=== PATIENT | male | born 1950 | race African-American/Black ===

== ENCOUNTER 2019-07-11 11:09 | Inpatient (IN) | payer MEDICARE, OTHER ==
[~2019-07-11] VITALS: Ht 172.7 cm; Wt 73.0 kg
[~2019-07-11 11:09] MED LIST: ALBUAER3 IN; ASPI-231 PO; ATOR40TA52 PO; DABI150C5 PO; DIG0125T PO; FURO1TAB33 PO; HYD25T PO; Isosorbide Mononitrate PO; LOS50T PO; METO1TAB9 PO; MEX150C PO; OMEP20TA PO; POTA1TAB61 PO; TAMS0.4C36 PO
[2019-07-11 12:26] LABS: Basophils # (auto) 0.1 uL; Basophils % (auto) 1.6 % (0.0-2.0); Eosinophils # (auto) 0.2 uL; Eosinophils % (auto) 3.2 % (0.0-7.0); Hemoglobin 13.3 g/dL (13.5-17.5); Lymphocytes # (auto) 1.8 uL; Lymphocytes % (auto) 23.5 % (10.0-50.0); Mean Corpuscular Hemoglobin 29.2 pg (28.0-32.0); Mean Corpuscular Hgb Conc. 32.5 g/dL (32.0-36.0); Mean Corpuscular Volume 89.8 fL (80.0-100.0); Monocytes # (auto) 0.6 uL; Monocytes % (auto) 8.1 % (0.0-12.0); Neutrophils # (auto) 4.7 uL; Neutrophils % (auto) 63.6 % (37.0-80.0); Platelet Count (auto) 267 10^3/uL (140-450); Red Blood Cells 4.56 10^6/uL (4.5-5.90); Red Cell Distribution Width 16.2 % (11.8-14.3); White Blood Cell 7.5 10^3/uL (4.4-10.8)
[2019-07-11 12:48] LABS: Chloride 108 mmol/L (98-107); Potassium 3.5 mmol/L (3.5-5.1); Sodium 140 mmol/L (136-145)
[2019-07-11 12:57] LABS: Alanine Aminotransferase 16 U/L (16-61); Albumin 3.6 g/dL (3.4-5.0); Alkaline Phosphatase 72 U/L (45-117); Anion Gap 9 (5-15); Aspartate Aminotransferase 15 U/L (15-37); BUN/Creatinine Ratio 14.4; Bilirubin, Total 0.7 mg/dL (0.2-1.0); Blood Urea Nitrogen 19 mg/dL (7-18); Carbon Dioxide 23 mmol/L (21-32); GFR African American 69 mL/min; GFR Non-African American 57 mL/min; Glucose 86 mg/dL (74-106); Total Protein 7.8 g/dL (6.4-8.2)
[2019-07-11] MEDS ORDERED: SENN1TAB14 PO (13:26)
[2019-07-11] MEDS ORDERED: dilTIAZem 25 MG/5 ML VIAL IV ONE (13:45)
[2019-07-11] MEDS ORDERED: ASPirin 81 mg TAB PO ONE (14:15)
[2019-07-11 14:32] LABS: INR 1.18 (0.9-1.15); Partial Thromboplastin Time 60.6 sec (23.64-32.05)
[2019-07-11 14:58] LABS: Urine Bacteria NONE SEEN /hpf (None Seen); Urine Blood 1+ /uL (Negative); Urine Hyaline Cast FEW /lpf (0 - 2); Urine Specific Gravity 1.031 (1.001-1.035); Urine WBC 59 /hpf (0 - 3)
[2019-07-11] MEDS ORDERED: METOPROLOL TARTRATE 50 MG TAB PO ONE (16:00)
[2019-07-11] MEDS ORDERED: MORPHINE SULF INJ 2 MG/ML SYRINGE 1ML IV PRN (16:00)
[2019-07-11] MEDS ORDERED: PROMETHAZINE HCL 25 MG/ML 1ML IV PRN (16:00)
[2019-07-11] MEDS ORDERED: ALBUTEROL SULF 2.5 MG/0.5ML(0.5%) NEB SOLN NEB PRN (16:00)
[2019-07-11] MEDS ORDERED: ACETAMINOPHEN 500 MG TAB PO PRN (16:00)
[2019-07-11] MEDS ORDERED: SENNA 8.6 MG TAB PO PRN (16:00)
[2019-07-11] MEDS ORDERED: TEMAZEPAM 15 MG CAP PO PRN (16:00)
[2019-07-11] MEDS ORDERED: DEXTROSE (50%) 50ML SYRG IV PRN (16:00)
[2019-07-11] MEDS ORDERED: MEXILETINE HYDROCHLORIDE 150 MG CAP PO ONE (16:00)
[2019-07-11] MEDS ORDERED: NITROGLYCERIN 0.4 MG SL TAB SL PRN (16:00)
[2019-07-11 16:28] LABS: Alcohol, Urine < 3.0 mg/dL (0-5); Amphetamine Screen, Urine NEGATIVE (NEGATIVE); Barbiturate Scree,Urine NEGATIVE (NEGATIVE); Benzodiazephine Screen, Urine NEGATIVE (NEGATIVE); Cannabinoid Screen, Urine POSITIVE (NEGATIVE); Cocaine Screen, Urine NEGATIVE (NEGATIVE); Opiate Scree,Urine NEGATIVE (NEGATIVE); Phencyclidine Screen, Urine NEGATIVE (NEGATIVE)
[2019-07-11] MEDS: traMADol HCL 50 MG TAB PO PRN ×2 (16:30→23:19)
[2019-07-11] MEDS: ACCU-CHEK COMFORT CURVE STRIP VI SCH (18:06)
[2019-07-11] MEDS: METOPROLOL SUCCINATE XL 50 MG TAB PO SCH (18:17)
[2019-07-11] MEDS: FUROSEMIDE 20 MG TAB PO SCH (18:18)
[2019-07-11] MEDS: IPRATROPIUM BROM 0.5 MG/2.5ML INH SOL NEB SCH (18:56)
[2019-07-11] MEDS: ALBUTEROL SULF 2.5 MG/0.5ML(0.5%) NEB SOLN NEB SCH (18:56)
[2019-07-11] MEDS ORDERED: cefTRIAXone 1GM/50ML D5W 50 ML IV ONE (20:15)
[2019-07-11 22:00] VITALS: BP 133/72
[2019-07-11] MEDS ORDERED: MEXILETINE HYDROCHLORIDE 150 MG CAP PO SCH (22:00)
[2019-07-11] MEDS ORDERED: hydrALAZINE HCL 25 MG TAB PO SCH (22:00)
[2019-07-11 23:04] VITALS: BP 147/99
[2019-07-12] VITALS (7 sets, daily range): BP systolic 102–137; BP diastolic 71–106
[2019-07-12] MEDS: ALBUTEROL SULF 2.5 MG/0.5ML(0.5%) NEB SOLN NEB SCH ×4 (00:48→18:00)
[2019-07-12] MEDS: IPRATROPIUM BROM 0.5 MG/2.5ML INH SOL NEB SCH ×4 (00:48→17:59)
[2019-07-12] MEDS: ACCU-CHEK COMFORT CURVE STRIP VI SCH ×4 (01:27→18:17)
[2019-07-12] MEDS: POTASSIUM CHL 10 Meq TABLET PO SCH ×2 (01:28→09:32)
[2019-07-12 05:47] LABS: Albumin 3.3 g/dL (3.4-5.0); Calcium 8.4 mg/dL (8.5-10.1); Potassium 3.7 mmol/L (3.5-5.1)
[2019-07-12 05:51] LABS: BUN/Creatinine Ratio 15.2; Bilirubin, Total 0.8 mg/dL (0.2-1.0); Total Protein 7.2 g/dL (6.4-8.2)
[2019-07-12] MEDS: FUROSEMIDE 20 MG TAB PO SCH (06:47)
[2019-07-12] MEDS: traMADol HCL 50 MG TAB PO PRN ×2 (06:48→12:54)
[2019-07-12] MEDS ORDERED: PANTOPRAZOLE 40 MG TAB PO SCH (08:00)
[2019-07-12] MEDS ORDERED: cefTRIAXone 1GM/50ML D5W 50 ML IV SCH (09:00)
[2019-07-12] MEDS: METOPROLOL SUCCINATE XL 50 MG TAB PO SCH ×2 (09:31→18:00)
[2019-07-12] MEDS ORDERED: DABIGATRAN 75 MG CAP PO SCH ×2 (10:00→22:00)
[2019-07-12] MEDS ORDERED: ASPirin-EC 81 mg tab PO SCH (10:00)
[2019-07-12] MEDS ORDERED: TAMSULOSIN HYDROCHLORIDE 0.4 MG CAP PO SCH (10:00)
[2019-07-12] MEDS ORDERED: ISOSORBIDE MONONITRATE 60 MG PO SCH (10:00)
[2019-07-12] MEDS ORDERED: LOSARTAN POTASSIUM 50 MG TAB PO SCH (10:00)
[2019-07-12] MEDS ORDERED: CEPH-37 PO (15:13)
[2019-07-13] MEDS ORDERED: FUROSEMIDE 20 MG TAB PO SCH (10:00)
[2019-07-13] MEDS ORDERED: POTASSIUM CHL 10 Meq TABLET PO SCH (10:00)
== END 2019-07-12 19:23 | disposition home or self-care (01) | DRG 315 ==
LOC: EDBD 11:09 → ER 11:14 → TELE 11:15 → TELE-WESTW 19:32
PROVIDERS: ADMIT Internal Medicine; ATTEND Internal Medicine
DX: T82.119A Breakdown (mechanical) of unspecified cardiac electronic device, initial encounter (principal); I13.0 Hypertensive heart and chronic kidney disease with heart failure and stage 1 through stage 4 chronic kidney disease, or unspecified chronic kidney disease; N39.0 Urinary tract infection, site not specified; D68.69 Other thrombophilia; R07.89 Other chest pain; I48.91 Unspecified atrial fibrillation; I49.3 Ventricular premature depolarization; F41.9 Anxiety disorder, unspecified; J44.9 Chronic obstructive pulmonary disease, unspecified; N40.0 Benign prostatic hyperplasia without lower urinary tract symptoms; N18.3 Chronic kidney disease, stage 3 (moderate); Y71.2 Prosthetic and other implants, materials and accessory cardiovascular devices associated with adverse incidents; E11.22 Type 2 diabetes mellitus with diabetic chronic kidney disease; I50.9 Heart failure, unspecified; F17.210 Nicotine dependence, cigarettes, uncomplicated; Z95.810 Presence of automatic (implantable) cardiac defibrillator; Z82.49 Family history of ischemic heart disease and other diseases of the circulatory system
CPT/HCPCS: 36415; 71045; 80053; 80307; 81001; 82550; 82962; 83036; 83735; 83880; 84443; 84484; 85025; 85610; 85730; 93005; 94640; 96374; 96375; G0378; J0696

== ENCOUNTER 2019-11-17 18:55 | Inpatient (IN) | payer MEDICARE, OTHER ==
[~2019-11-17] VITALS: Ht 172.7 cm; Wt 74.6 kg
[~2019-11-17 18:55] MED LIST changes: -ATOR40TA52 PO; +CEPH-37 PO; -DIG0125T PO; +SENN1TAB14 PO
[2019-11-17 19:49] LABS: Basophils # (auto) 0.1 10 ^3/uL (0-0.2); Basophils % (auto) 2.2 % (0.0-2.0); Eosinophils # (auto) 0.2 10 ^3/uL (0-0.8); Hematocrit 33.8 % (41.0-53.0); Hemoglobin 10.8 g/dL (13.5-17.5); Lymphocytes % (auto) 15.2 % (10.0-50.0); Mean Corpuscular Hemoglobin 28.1 pg (28.0-32.0); Mean Corpuscular Hgb Conc. 32.1 g/dL (32.0-36.0); Mean Corpuscular Volume 87.4 fL (80.0-100.0); Monocytes # (auto) 0.7 10 ^3/uL (0-1.3); Monocytes % (auto) 11.3 % (0.0-12.0); Neutrophils # (auto) 4.2 10 ^3/uL (1.6-8.6); Neutrophils % (auto) 67.3 % (37.0-80.0); Nucleated Red Blood Cells % 0.1 %; Platelet Count (auto) 296 10^3/uL (140-450); Red Blood Cells 3.86 10^6/uL (4.5-5.90); Red Cell Distribution Width 18.8 % (11.8-14.3); White Blood Cell 6.3 10^3/uL (4.4-10.8)
[2019-11-17 20:07] LABS: Alanine Aminotransferase 21 U/L (16-61); Anion Gap 8 (5-15); Aspartate Aminotransferase 20 U/L (15-37); BUN/Creatinine Ratio 9.7; Blood Urea Nitrogen 11 mg/dL (7-18); Calcium 8.4 mg/dL (8.5-10.1); Carbon Dioxide 25 mmol/L (21-32); Chloride 102 mmol/L (98-107); GFR African American 83 mL/min; GFR Non-African American 68 mL/min; Glucose 91 mg/dL (74-106); Potassium 3.1 mmol/L (3.5-5.1); Sodium 135 mmol/L (136-145)
[2019-11-17 20:11] LABS: Alkaline Phosphatase 68 U/L (45-117); Bilirubin, Total 1.7 mg/dL (0.2-1.0)
[2019-11-17] MEDS ORDERED: MORPHINE SULFATE 4 MG/ML SYR/VIAL IV ONE (22:15)
[2019-11-17] MEDS ORDERED: NITROGLYCERIN 0.2MG/HR TOPICAL PATCH TD ONE (22:15)
[2019-11-17] MEDS ORDERED: POTASSIUM EFFERVESENT TAB 25 MEQ PO ONE (22:15)
[2019-11-17] MEDS ORDERED: ONDANSETRON HCL 4 MG/2 ML VIAL IV ONE (22:15)
[2019-11-17] MEDS ORDERED: ENALAPRILAT 1.25 MG/ML-1ML VIAL IV ONE (22:15)
[2019-11-17 23:05] LABS: INR 1.69 (0.9-1.15)
[2019-11-17 23:07] LABS: Partial Thromboplastin Time 105.5 sec (23.64-32.05)
[2019-11-17] MEDS ORDERED: METOPROLOL TARTRATE 1MG/1ML-5ML VIAL IV ONE (23:45)
[2019-11-18] VITALS (8 sets, daily range): BP systolic 90–115; BP diastolic 54–77
[2019-11-18 01:05] LABS: Urine Bacteria FEW /hpf (None Seen); Urine Blood 1+ /uL (Negative); Urine Hyaline Cast FEW /lpf (0 - 2); Urine Specific Gravity 1.012 (1.001-1.035); Urine WBC 49 /hpf (0 - 3)
[2019-11-18 01:54] LABS: Amphetamine Screen, Urine NEGATIVE (NEGATIVE); Barbiturate Scree,Urine NEGATIVE (NEGATIVE); Benzodiazephine Screen, Urine NEGATIVE (NEGATIVE); Cannabinoid Screen, Urine POSITIVE (NEGATIVE); Cocaine Screen, Urine NEGATIVE (NEGATIVE)
[2019-11-18 02:01] LABS: Opiate Scree,Urine NEGATIVE (NEGATIVE); Phencyclidine Screen, Urine NEGATIVE (NEGATIVE)
[2019-11-18] MEDS ORDERED: METOPROLOL TARTRATE 1MG/1ML-5ML VIAL IV ONE ×3 (02:30→13:01)
[2019-11-18] MEDS ORDERED: MORPHINE SULF INJ 2 MG/ML SYRINGE 1ML IV PRN (05:30)
[2019-11-18] MEDS ORDERED: TEMAZEPAM 15 MG CAP PO PRN (05:30)
[2019-11-18] MEDS ORDERED: ACETAMINOPHEN 325 MG TAB PO PRN (05:30)
[2019-11-18] MEDS ORDERED: NITROGLYCERIN 0.4 MG SL TAB SL PRN (05:30)
[2019-11-18] MEDS: FUROSEMIDE 40 MG TAB PO SCH ×2 (06:14→18:00)
[2019-11-18] MEDS ORDERED: POTASSIUM CHL 20 Meq TABLET PO ONE ×2 (07:45→18:15)
[2019-11-18] MEDS ORDERED: METOPROLOL TARTRATE 50 MG TAB PO SCH (10:00)
[2019-11-18] MEDS: hydrALAZINE HCL 25 MG TAB PO SCH ×2 (10:00→21:32)
[2019-11-18] MEDS: FAMOTIDINE 20 MG TAB PO SCH ×2 (10:25→21:32)
[2019-11-18] MEDS: ASPirin 81 mg TAB PO SCH (10:26)
--- NOTE | 2019-11-18 13:00 | NUR ---
SPOKE WITH DEREJE LOCKETT REGARDING HEART RATE IN 120-130. RECEIVED ORDER FOR 5 MG IV LOPREASOR TO BE GIVEN ONCE AND TO CALL HIM IN A HOUR. Addendum: 11/18/19 at 1954 by KIESHA BENITES RN DR. LEVY SALVADOR
--- NOTE | 2019-11-18 13:32 | NUR ---
DR. Chris SHELDON AT BEDSIDE.
--- NOTE | 2019-11-18 14:31 | NUR ---
Dr. Cristopher Lopez updated with one hour post lopressor administration, aware of heart rate 101-111 at this time, no new orders will come to see patient after office hours. Will continue to monitor.
--- NOTE | 2019-11-18 15:21 | NUR ---
Dr. Lopez updated patient forgot his inhaler at home, patient requesting inhaler or subsitute prn. Awaiting response.
--- NOTE | 2019-11-18 15:45 | NUR ---
DR. MODESTO LOCKETT AT BEDSIDE
--- NOTE | 2019-11-18 16:11 | NUR ---
New orders received from Dr. Lopez. RT aware and will come to the bedside. Will continue to monitor.
[2019-11-18] MEDS ORDERED: LEVALBUTEROL HCL 1.25 MG/3 ML NEB NEB PRN (16:15)
[2019-11-18] MEDS ORDERED: DIGOXIN 0.25 MG TAB PO ONE (18:00)
[2019-11-18] MEDS: METOPROLOL TARTRATE 50 MG TAB PO SCH ×2 (18:37→21:32)
--- NOTE | 2019-11-18 19:36 | NUR ---
REPORT GIVEN IN FULL DETAIL TO DEB DICKERSON. RN WAS MADE AWARE THAT FIRST DOSE OF DIGOXIN 0.5 WAS GIVEN AND PT IS TO RECEIVE ANOTHER 0.25 AT 2 AM AND 0.25 AT [address] LOCKETT WILL CHANGE DOSE. RN WAS MADE AWARE THE PT IS TO RECEIVE 40 MEQ OF POTASSIUM AND HAVE LAB RE-DRAWN THREE HOURS AFTER. RN MADE AWARE THE PER DR. LOCKETT PT POTASSIUM IS TO REMAIN AT A 4, IF LEVEL DROPS BELOW TO PLEASE CONTACT PHYSICIAN. DEB DICKERSON WAS GIVEN 40 MEQ OF POTASSIUM TO ADMINISTER TO PATIENT AND THE DOSE OF LASIX THAT WAS HELD DUE TO LOW BLOOD PRESSURE. NO FURTHER INCIDENT TO REPORT.
--- NOTE | 2019-11-18 19:45 | NUR ---
PT TRANSFERRED TO ROOM 220A IN STABLE CONDITION. PT ON TELE MONITOR AND 3L NC. FALL PRECAUTIONS IN PLACE, BED IN LOWEST POSITION BED BRAKE AND ALARM SET,PT CALL LIGHT WITH IN REACH. DEB DICKERSNO AT BEDSIDE.
--- NOTE | 2019-11-18 19:45 | NUR ---
Telemetry admit from O.R. WILLOZ J admitted to Telemetry unit after SBAR received. Patient oriented to Sophia muse RN, unit, room, bed, and unit policies regarding patient care and visiting hours. Patient now on continuous telemetry monitoring, tele box # and telemetry reading on arrival to unit is . Patient placed on bedside oxygen, weighed by bed scale and encouraged to call if they need something. All questions and concerns addressed, patient verbalized understanding. Note:E.R patient placed in O.R, not surgical patient per stretcher, placed in the bed comfortably, vital signs checked. Addendum: 11/19/19 at [address] RN Patient has tele no.[phone], running afib 96
--- NOTE | 2019-11-18 20:45 | NUR ---
Called/paged Sheryl Hauser. called re:patients blood pressure is 85/55,almost fainted, arousable to verbal stimuli . Waiting for call back. Continue care.
[2019-11-18] MEDS ORDERED: ALBUMIN 5% 250 ML IV ONE (21:15)
--- NOTE | 2019-11-18 21:15 | NUR ---
returned call Sheryl Hauser returned call, updated on patient status and reason for call, orders received of albumin 5% 250ml. x one. Continue care.
[2019-11-19 01:55] LABS: BUN/Creatinine Ratio 10.8; Calcium 8.7 mg/dL (8.5-10.1)
[2019-11-19 01:57] LABS: Bilirubin, Total 1.9 mg/dL (0.2-1.0); Total Protein 6.7 g/dL (6.4-8.2)
[2019-11-19 01:59] LABS: Potassium 5.8 mmol/L (3.5-5.1)
[2019-11-19] MEDS ORDERED: DIGOXIN 0.25 MG TAB PO ONE ×2 (02:00→10:00)
[2019-11-19 05:05] VITALS: BP 122/73
[2019-11-19] MEDS: FUROSEMIDE 40 MG TAB PO SCH (05:25)
[2019-11-19] MEDS: LEVOTHYROXINE SODIUM 25 MCG TAB PO SCH (06:30)
--- NOTE | 2019-11-19 06:38 | NUR ---
Called/paged Khalida Hauser called re:potassium result of 5.8 . Waiting for call back. Continue care.
--- NOTE | 2019-11-19 07:00 | NUR ---
Report given to Yajaira, ham R.n. to check for the order of Mikael.
[2019-11-19] MEDS ORDERED: SODIUM ZIRCONIUM CYCL 10 GM PAK PO ONE (07:30)
--- NOTE | 2019-11-19 07:35 | NUR ---
Opening shift note Assumed care of patient from NOC DEB Holloway. Patient is AOx4 no signs and symptoms of distress noted. Bed is in lowest locked position, call light within reach and side rails up x2. Updated patient on plan of care and patient verbalized understanding. Will continue to monitor q1hr and PRN.
[2019-11-19 07:54] LABS: Basophils # (auto) 0.1 10 ^3/uL (0-0.2); Basophils % (auto) 1.4 % (0.0-2.0); Eosinophils # (auto) 0 10 ^3/uL (0-0.8); Eosinophils % (auto) 0.7 % (0.0-7.0); Hematocrit 32.7 % (41.0-53.0); Hemoglobin 10.5 g/dL (13.5-17.5); Lymphocytes # (auto) 0.9 10 ^3/uL (0.4-5.4); Lymphocytes % (auto) 15.9 % (10.0-50.0); Mean Corpuscular Hemoglobin 28.2 pg (28.0-32.0); Mean Corpuscular Hgb Conc. 32.2 g/dL (32.0-36.0); Mean Corpuscular Volume 87.8 fL (80.0-100.0); Monocytes # (auto) 0.6 10 ^3/uL (0-1.3); Monocytes % (auto) 10.8 % (0.0-12.0); Neutrophils # (auto) 4.3 10 ^3/uL (1.6-8.6); Neutrophils % (auto) 71.2 % (37.0-80.0); Nucleated Red Blood Cells % 0.1 %; Platelet Count (auto) 272 10^3/uL (140-450); Red Blood Cells 3.73 10^6/uL (4.5-5.90); Red Cell Distribution Width 18.6 % (11.8-14.3)
[2019-11-19 08:07] LABS: Calcium 8.9 mg/dL (8.5-10.1)
[2019-11-19 08:10] LABS: BUN/Creatinine Ratio 12.1; Bilirubin, Total 1.9 mg/dL (0.2-1.0); Total Protein 6.5 g/dL (6.4-8.2)
[2019-11-19 08:22] LABS: Potassium 5.9 mmol/L (3.5-5.1)
--- NOTE | 2019-11-19 08:26 | NUR ---
Paged production supervisor hospitalist Paged production supervisor regarding critical lab result. Awaiting call back.
--- NOTE | 2019-11-19 08:40 | NUR ---
IV removal Bilateral IVs noted to be reddened and tender to touch, patient complaning of pain at site. IV DC'd with clean sterile technique, catheter fully intact. Pressure dressing applied to site. Patient tolerated well.
[2019-11-19 09:00] VITALS: BP 118/72
--- NOTE | 2019-11-19 09:00 | NUR ---
IV insertion IV access obtained, via clean sterile technique by inserting 22 gauge catheter at RFA after 1 attempt. IV secured properly. No trauma to site. Patient tolerated well.
--- NOTE | 2019-11-19 10:30 | NUR ---
RT NOTE: WENT TO PTS ROOM TO ASSESS FOR PRN BREATHING TX, PT STATED THAT HE WAS BREATHING FINE, NO S/S OF SOB, NO INDICATION FOR TX AT THIS TIME. HR 75, RR 16, SPO2 94% ON 4LPM NC. WILL CONTINUE TO MONITOR PT.
[2019-11-19] MEDS: ASPirin 81 mg TAB PO SCH (11:02)
[2019-11-19] MEDS: FAMOTIDINE 20 MG TAB PO SCH ×2 (11:04→22:36)
--- NOTE | 2019-11-19 11:10 | NUR ---
PAIN ASSESSMENT Patient complaint of pain 01/19. No high level pain medication ordered, will notify .
[2019-11-19] MEDS: hydrALAZINE HCL 25 MG TAB PO SCH ×2 (11:11→22:35)
--- NOTE | 2019-11-19 11:20 | NUR ---
Updated on pain Dr. Denton made aware of patients pain level, new orders received. Will follow through, will continue care.
[2019-11-19 13:00] VITALS: BP 140/87
[2019-11-19] MEDS: HYDROcodone-ACET 5/325MG TAB PO PRN ×2 (13:54→22:36)
[2019-11-19] MEDS: METOPROLOL TARTRATE 50 MG TAB PO SCH ×2 (13:56→22:35)
--- NOTE | 2019-11-19 16:53 | NUR ---
Received call from patients home health Received call from Tyshawn from [facility]. Tyshawn was confirming patients hospitalization. Per Tyshawn patient will resume home health services upon D/C. Phone # is [phone].
[2019-11-19 17:00] VITALS: BP 146/71
[2019-11-19] MEDS: TAMSULOSIN HYDROCHLORIDE 0.4 MG CAP PO SCH ×2 (17:33→17:46)
--- NOTE | 2019-11-19 18:15 | NUR ---
PT ASSESSED FOR PRN MED NEB TX. SPO2 99% ON 4L NC, HR 74. PT DENIES ANY RESPIRATORY DISTRESS. NO TX INDICATED. WILL CONTINUE TO MONITOR.
--- NOTE | 2019-11-19 19:20 | NUR ---
End of shift note Endorsed care to NOC DEB Lara. No s/s of distress noted.
--- NOTE | 2019-11-19 20:00 | NUR ---
Opening Shift Note Assumed care of patient. Awake, alert and oriented x4. No S/S of distress/SOB or pain. Patient is laying down in bed with nasal cannula on at 4L with even and unlabored respirations. Instructed on POC and to call for assist PRN. Bed locked, in lowest position, call light within reach, side rails up x2. Will continue to monitor for changes Q1hr and PRN.
[2019-11-19 22:00] VITALS: BP 127/78
[2019-11-20 05:00] VITALS: BP 121/57
[2019-11-20] MEDS: LEVOTHYROXINE SODIUM 25 MCG TAB PO SCH (06:46)
[2019-11-20] MEDS: HYDROcodone-ACET 5/325MG TAB PO PRN ×2 (06:46→22:20)
--- NOTE | 2019-11-20 07:45 | NUR ---
Respiratory note: Assessed pt for prn medneb tx. HR 79, RR 18, SPO2 92% on 4lpm nasal cannula. Breath sounds clear/dim, no s/s of distress noted. Pt denies SOB at this time. Medneb tx not indicated. Pt aware to call for RT if needed.
[2019-11-20 09:00] VITALS: BP 126/72
[2019-11-20] MEDS ORDERED: FUROSEMIDE 40 MG TAB PO SCH (10:00)
[2019-11-20] MEDS: ASPirin 81 mg TAB PO SCH (11:29)
[2019-11-20] MEDS: FAMOTIDINE 20 MG TAB PO SCH ×2 (11:29→22:19)
[2019-11-20] MEDS: hydrALAZINE HCL 25 MG TAB PO SCH ×2 (11:29→22:18)
[2019-11-20] MEDS: METOPROLOL TARTRATE 50 MG TAB PO SCH (11:30)
[2019-11-20 13:00] VITALS: BP 123/76
[2019-11-20 13:59] LABS: Albumin 2.8 g/dL (3.4-5.0); Calcium 8.6 mg/dL (8.5-10.1); Potassium 4.3 mmol/L (3.5-5.1)
[2019-11-20 14:02] LABS: BUN/Creatinine Ratio 14.9; Bilirubin, Total 1.6 mg/dL (0.2-1.0); Total Protein 6.4 g/dL (6.4-8.2)
[2019-11-20] MEDS ORDERED: MILK OF MAGNESIA 30ML SUSP PO PRN (14:45)
[2019-11-20] MEDS: APIXABAN 5 MG TAB PO SCH ×2 (15:28→22:19)
[2019-11-20] MEDS: METOPROLOL SUCCINATE XL 50 MG TAB PO SCH (15:28)
[2019-11-20 17:00] VITALS: BP 115/70
[2019-11-20] MEDS: TAMSULOSIN HYDROCHLORIDE 0.4 MG CAP PO SCH (18:52)
--- NOTE | 2019-11-20 19:05 | NUR ---
Respiratory note: ASSESSED PT FOR PRN MED NEB AT THIS TIME, PT DENIES SOB AT THIS TIME, NO RESP DISTRESS NOTED, NO TX INDICATED, PULSE OX 97% ON 4L NC. HR 84, RR 18, BILATERAL BS CLEAR.
[2019-11-20 22:00] VITALS: BP 117/75
[2019-11-21 05:00] VITALS: BP 144/79
[2019-11-21] MEDS: LEVOTHYROXINE SODIUM 25 MCG TAB PO SCH (06:22)
[2019-11-21] MEDS: HYDROcodone-ACET 5/325MG TAB PO PRN (06:27)
--- NOTE | 2019-11-21 07:50 | NUR ---
Opening Note Assumed pt care from JUNE RN. Pt is a/ox4 with no s/s of distress or SOB. Pt is currently sitting upright in bed with no complaints at this time on 2L via NC. Pt states that he takes the O2 off and on but "feels better" with it on. Discussed POC with pt; pt verbalized understanding. Safety measures maintained with call light within reach, bed in lowest position and side rails up. Will continue to monitor.
--- NOTE | 2019-11-21 08:40 | NUR ---
Dr Tucker at Bedside MD to see pt. Stated that pt is cleared for d/c from his standpoint. Will continue to monitor.
[2019-11-21 09:00] VITALS: BP 132/75
[2019-11-21] MEDS: ASPirin 81 mg TAB PO SCH (09:18)
[2019-11-21] MEDS: hydrALAZINE HCL 25 MG TAB PO SCH (09:18)
[2019-11-21] MEDS: METOPROLOL SUCCINATE XL 50 MG TAB PO SCH (09:18)
[2019-11-21] MEDS: APIXABAN 5 MG TAB PO SCH (09:19)
--- NOTE | 2019-11-21 09:30 | NUR ---
Dr Denton at Bedside MD to see pt. Plans to d/c pt home today. Will implement and continue to monitor.
[2019-11-21] MEDS ORDERED: FUROSEMIDE 20 MG TAB PO SCH (10:00)
[2019-11-21] MEDS ORDERED: FAMOTIDINE 20 MG TAB PO SCH (10:00)
[2019-11-21 10:19] VITALS: BP 132/75
--- NOTE | 2019-11-21 11:07 | NUR ---
IV and Tele 34 Removed IV to pt's R FA removed. Catheter was removed fully intact. Sits is asymptomatic. Pressure was applied to site for 3 minutes with gauze and then wrapped in coban. Pt instructed to keep dressing on for 30 minutes; pt verbalized understanding. Tele 34 Removed and sent back to ICU Staff made aware.
[2019-11-21 11:18] VITALS: BP 132/75
--- NOTE | 2019-11-21 11:18 | NUR ---
Pt D/C'ed Off Unit Pt d/c'ed off unit via wheelchair. Pt is a/ox4 with no s/s of distress or SOB. Pt provided education material, follow up appointment information, and all questions were answered. IV and tele box were d/c'ed prior to d/c.
== END 2019-11-21 11:20 | disposition home or self-care (01) | DRG 309 ==
LOC: ER 18:56 → TELE 18:57 → TELE-CENTR 11-18 19:44
PROVIDERS: ADMIT Nurse Practitioner; ATTEND Family Medicine
DX: I48.91 Unspecified atrial fibrillation (principal); E44.0 Moderate protein-calorie malnutrition; D68.8 Other specified coagulation defects; E87.6 Hypokalemia; E11.9 Type 2 diabetes mellitus without complications; F17.210 Nicotine dependence, cigarettes, uncomplicated; I08.3 Combined rheumatic disorders of mitral, aortic and tricuspid valves; I11.0 Hypertensive heart disease with heart failure; I27.20 Pulmonary hypertension, unspecified; E66.01 Morbid (severe) obesity due to excess calories; I50.9 Heart failure, unspecified; F41.9 Anxiety disorder, unspecified; N40.0 Benign prostatic hyperplasia without lower urinary tract symptoms; J44.9 Chronic obstructive pulmonary disease, unspecified; E78.5 Hyperlipidemia, unspecified; Z82.49 Family history of ischemic heart disease and other diseases of the circulatory system; Z95.810 Presence of automatic (implantable) cardiac defibrillator; Z79.899 Other long term (current) drug therapy; Z68.25 Body mass index [BMI] 25.0-25.9, adult; I42.8 Other cardiomyopathies
CPT/HCPCS: 36415; 71046; 80053; 80307; 81001; 82962; 83735; 83880; 84443; 84484; 85025; 85610; 85730; 93005; 93306; 94640; 96374; 96375; 96376; 99291; G0378; J2405

== ENCOUNTER → 2019-12-02 | Emergency (ER) | payer OTHER ==
[~2019-12-02] VITALS: Ht 172.7 cm; Wt 71.2 kg
[~2019-12-02] MED LIST changes: +FUROSEMIDE 40 MG/4 ML VIAL IV ONE; +POTASSIUM EFFERVESENT TAB 25 MEQ PO ONE
[2019-12-02 13:53] VITALS: BP 126/60
[2019-12-02 14:17] LABS: Basophils # (auto) 0.1 10 ^3/uL (0-0.2); Basophils % (auto) 1.8 % (0.0-2.0); Eosinophils # (auto) 0.2 10 ^3/uL (0-0.8); Eosinophils % (auto) 3.3 % (0.0-7.0); Hematocrit 37.3 % (41.0-53.0); Hemoglobin 11.7 g/dL (13.5-17.5); Lymphocytes # (auto) 0.9 10 ^3/uL (0.4-5.4); Lymphocytes % (auto) 15.6 % (10.0-50.0); Mean Corpuscular Hemoglobin 27.4 pg (28.0-32.0); Mean Corpuscular Hgb Conc. 31.3 g/dL (32.0-36.0); Mean Corpuscular Volume 87.5 fL (80.0-100.0); Monocytes # (auto) 0.6 10 ^3/uL (0-1.3); Monocytes % (auto) 10.1 % (0.0-12.0); Neutrophils # (auto) 3.9 10 ^3/uL (1.6-8.6); Neutrophils % (auto) 69.2 % (37.0-80.0); Nucleated Red Blood Cells % 0.1 %; Platelet Count (auto) 191 10^3/uL (140-450); Red Blood Cells 4.26 10^6/uL (4.5-5.90); Red Cell Distribution Width 18.3 % (11.8-14.3); White Blood Cell 5.7 10^3/uL (4.4-10.8)
[2019-12-02 14:36] LABS: Alanine Aminotransferase 18 U/L (16-61); Anion Gap 5 (5-15); Aspartate Aminotransferase 12 U/L (15-37); BUN/Creatinine Ratio 9.1; Blood Urea Nitrogen 11 mg/dL (7-18); Calcium 8.1 mg/dL (8.5-10.1); Carbon Dioxide 29 mmol/L (21-32); Chloride 102 mmol/L (98-107); GFR African American 76 mL/min; GFR Non-African American 63 mL/min; Glucose 95 mg/dL (74-106); Sodium 136 mmol/L (136-145)
[2019-12-02 14:41] LABS: Alkaline Phosphatase 66 U/L (45-117); Bilirubin, Total 1.5 mg/dL (0.2-1.0); Total Protein 6.8 g/dL (6.4-8.2)
[2019-12-02 14:55] LABS: INR 2.45 (0.9-1.15)
[2019-12-02 14:58] LABS: Partial Thromboplastin Time 111.3 sec (23.64-32.05)
[2019-12-02 14:59] LABS: Potassium 2.9 mmol/L (3.5-5.1)
== END | disposition home or self-care (01) ==
LOC: ER 13:36
DX: I24.9 Acute ischemic heart disease, unspecified (principal); E44.1 Mild protein-calorie malnutrition; E87.6 Hypokalemia; I11.0 Hypertensive heart disease with heart failure; I50.9 Heart failure, unspecified; I48.91 Unspecified atrial fibrillation; J44.9 Chronic obstructive pulmonary disease, unspecified; E11.9 Type 2 diabetes mellitus without complications; F17.210 Nicotine dependence, cigarettes, uncomplicated
CPT/HCPCS: 36415; 71045; 80053; 83880; 84484; 85025; 85610; 85730; 93005

== ENCOUNTER 2019-12-13 19:13 | Inpatient (IN) | payer MEDICARE, OTHER ==
[~2019-12-13] VITALS: Ht 172.7 cm; Wt 68.5 kg
[~2019-12-13 19:13] MED LIST changes: -FUROSEMIDE 40 MG/4 ML VIAL IV ONE; -POTASSIUM EFFERVESENT TAB 25 MEQ PO ONE
[2019-12-14 02:12] LABS: Basophils # (auto) 0.1 10 ^3/uL (0-0.2); Eosinophils # (auto) 0.2 10 ^3/uL (0-0.8); Eosinophils % (auto) 3.2 % (0.0-7.0); Hematocrit 37.6 % (41.0-53.0); Hemoglobin 11.8 g/dL (13.5-17.5); Lymphocytes # (auto) 1.5 10 ^3/uL (0.4-5.4); Lymphocytes % (auto) 24.8 % (10.0-50.0); Mean Corpuscular Hgb Conc. 31.3 g/dL (32.0-36.0); Mean Corpuscular Volume 86.2 fL (80.0-100.0); Monocytes # (auto) 0.6 10 ^3/uL (0-1.3); Monocytes % (auto) 10.6 % (0.0-12.0); Neutrophils # (auto) 3.5 10 ^3/uL (1.6-8.6); Neutrophils % (auto) 59.4 % (37.0-80.0); Platelet Count (auto) 289 10^3/uL (140-450); Red Blood Cells 4.36 10^6/uL (4.5-5.90); Red Cell Distribution Width 18.1 % (11.8-14.3)
[2019-12-14 02:29] LABS: Albumin 3.3 g/dL (3.4-5.0); Anion Gap 5 (5-15); Blood Urea Nitrogen 9 mg/dL (7-18); Calcium 8.5 mg/dL (8.5-10.1); Carbon Dioxide 30 mmol/L (21-32); Chloride 101 mmol/L (98-107); Glucose 85 mg/dL (74-106); Sodium 136 mmol/L (136-145)
[2019-12-14 02:35] LABS: Alanine Aminotransferase 22 U/L (16-61); Alkaline Phosphatase 68 U/L (45-117); Aspartate Aminotransferase 18 U/L (15-37); BUN/Creatinine Ratio 7.1; Bilirubin, Total 1.2 mg/dL (0.2-1.0); CRP High Sensitivity 0.29 mg/dL (< 0.3); GFR African American 73 mL/min; GFR Non-African American 60 mL/min; Lactate Dehydrogenase 185 U/L (87-241); Total Protein 6.9 g/dL (6.4-8.2)
[2019-12-14 02:40] LABS: Potassium 2.9 mmol/L (3.5-5.1)
[2019-12-14] MEDS ORDERED: FUROSEMIDE 20 MG/2 ML VIAL IV ONE (04:45)
[2019-12-14 05:20] LABS: Urine Bacteria FEW /hpf (None Seen); Urine Blood 1+ /uL (Negative); Urine Hyaline Cast FEW /lpf (0 - 2); Urine Mucus FEW (None Seen); Urine Specific Gravity 1.018 (1.001-1.035); Urine WBC 40 /hpf (0 - 3)
[2019-12-14] MEDS ORDERED: MORPHINE SULF INJ 2 MG/ML SYRINGE 1ML IV PRN (05:30)
[2019-12-14] MEDS ORDERED: ONDANSETRON HCL 4 MG/2 ML VIAL IV PRN (05:30)
[2019-12-14] MEDS ORDERED: POTASSIUM CHL 20 Meq TABLET PO ONE ×2 (05:30→10:15)
[2019-12-14] MEDS ORDERED: NITROGLYCERIN 0.4 MG SL TAB SL PRN (05:30)
[2019-12-14] MEDS ORDERED: ACETAMINOPHEN 325 MG TAB PO PRN (05:30)
[2019-12-14 05:51] LABS: INR 1.42 (0.9-1.15)
[2019-12-14 05:59] LABS: Partial Thromboplastin Time 88.3 sec (23.0-31.2)
[2019-12-14] MEDS ORDERED: FUROSEMIDE 20 MG/2 ML VIAL IV SCH ×2 (06:00→18:00)
[2019-12-14 09:00] VITALS: BP 146/73
[2019-12-14] MEDS: METOPROLOL TARTRATE 50 MG TAB PO SCH ×2 (09:46→21:43)
[2019-12-14] MEDS: DABIGATRAN 75 MG CAP PO SCH ×2 (09:46→21:42)
[2019-12-14] MEDS: LOSARTAN POTASSIUM 50 MG TAB PO SCH (09:48)
[2019-12-14] MEDS: hydrALAZINE HCL 25 MG TAB PO SCH ×2 (09:48→21:43)
[2019-12-14] MEDS: FAMOTIDINE 20 MG TAB PO SCH ×2 (09:49→21:42)
[2019-12-14] MEDS: ISOSORBIDE MONONITRATE ER 60 MG TAB PO SCH (09:49)
[2019-12-14 13:00] VITALS: BP 121/78
[2019-12-14] MEDS ORDERED: HCTZ 25 MG TAB PO ONE (13:15)
[2019-12-14] MEDS ORDERED: AZITHROMYCIN 250 MG TAB PO ONE (13:15)
[2019-12-14] MEDS: MEXILETINE HYDROCHLORIDE 150 MG CAP PO SCH ×2 (14:00→21:42)
[2019-12-14] MEDS: ALBUTEROL SULF 2.5 MG/0.5ML(0.5%) NEB SOLN NEB PRN ×2 (15:17→21:34)
[2019-12-14] MEDS: HYDROcodone-ACET 5/325MG TAB PO PRN (16:06)
[2019-12-14 17:00] VITALS: BP 105/70
[2019-12-14] MEDS: FUROSEMIDE 40 MG/4 ML VIAL IV SCH (17:45)
[2019-12-14] MEDS: TAMSULOSIN HYDROCHLORIDE 0.4 MG CAP PO SCH (17:45)
[2019-12-14 18:51] LABS: BUN/Creatinine Ratio 8.3; Calcium 8.5 mg/dL (8.5-10.1); Potassium 4.1 mmol/L (3.5-5.1)
[2019-12-14] MEDS: TEMAZEPAM 15 MG CAP PO PRN (21:42)
[2019-12-14] MEDS: SENNA 8.6 MG TAB PO SCH (21:44)
[2019-12-14 22:00] VITALS: BP 108/66
[2019-12-15 03:18] VITALS: BP 108/66
[2019-12-15 05:00] VITALS: BP 117/74
[2019-12-15] MEDS: MEXILETINE HYDROCHLORIDE 150 MG CAP PO SCH ×3 (06:13→20:51)
[2019-12-15] MEDS: FUROSEMIDE 40 MG/4 ML VIAL IV SCH ×2 (06:13→18:11)
[2019-12-15 07:37] LABS: Basophils # (auto) 0.2 10 ^3/uL (0-0.2); Basophils % (auto) 3.4 % (0.0-2.0); Eosinophils # (auto) 0.2 10 ^3/uL (0-0.8); Eosinophils % (auto) 4.3 % (0.0-7.0); Hematocrit 36.7 % (41.0-53.0); Hemoglobin 11.6 g/dL (13.5-17.5); Lymphocytes # (auto) 1.1 10 ^3/uL (0.4-5.4); Mean Corpuscular Hemoglobin 27.2 pg (28.0-32.0); Mean Corpuscular Hgb Conc. 31.5 g/dL (32.0-36.0); Mean Corpuscular Volume 86.3 fL (80.0-100.0); Monocytes # (auto) 0.6 10 ^3/uL (0-1.3); Monocytes % (auto) 13.2 % (0.0-12.0); Neutrophils # (auto) 2.4 10 ^3/uL (1.6-8.6); Neutrophils % (auto) 55.1 % (37.0-80.0); Nucleated Red Blood Cells % 0.1 %; Platelet Count (auto) 241 10^3/uL (140-450); Red Blood Cells 4.25 10^6/uL (4.5-5.90); Red Cell Distribution Width 17.6 % (11.8-14.3); White Blood Cell 4.4 10^3/uL (4.4-10.8)
[2019-12-15 07:53] LABS: BUN/Creatinine Ratio 9.8; Calcium 8.6 mg/dL (8.5-10.1); Potassium 3.7 mmol/L (3.5-5.1)
[2019-12-15 08:55] VITALS: BP 121/71
[2019-12-15] MEDS: hydrALAZINE HCL 25 MG TAB PO SCH ×2 (09:39→22:00)
[2019-12-15] MEDS: ASPirin 81 mg TAB PO SCH (09:39)
[2019-12-15] MEDS: LOSARTAN POTASSIUM 50 MG TAB PO SCH (09:40)
[2019-12-15] MEDS: ISOSORBIDE MONONITRATE ER 60 MG TAB PO SCH (09:41)
[2019-12-15] MEDS: POTASSIUM EFFERVESENT TAB 25 MEQ PO SCH (09:41)
[2019-12-15] MEDS: HCTZ 25 MG TAB PO SCH (09:41)
[2019-12-15] MEDS: METOPROLOL TARTRATE 50 MG TAB PO SCH ×2 (09:42→22:00)
[2019-12-15] MEDS: DABIGATRAN 75 MG CAP PO SCH ×2 (09:43→20:51)
[2019-12-15] MEDS: FAMOTIDINE 20 MG TAB PO SCH ×2 (09:43→20:51)
[2019-12-15] MEDS: AZITHROMYCIN 250 MG TAB PO SCH (09:43)
[2019-12-15] MEDS: HYDROcodone-ACET 5/325MG TAB PO PRN (12:05)
[2019-12-15 12:50] VITALS: BP 103/56
[2019-12-15 17:00] VITALS: BP 100/55
[2019-12-15] MEDS: TAMSULOSIN HYDROCHLORIDE 0.4 MG CAP PO SCH (18:11)
[2019-12-15] MEDS: SENNA 8.6 MG TAB PO SCH (20:50)
[2019-12-15] MEDS: TEMAZEPAM 15 MG CAP PO PRN (20:52)
[2019-12-15 22:00] VITALS: BP 101/56
[2019-12-16] MEDS: HYDROcodone-ACET 5/325MG TAB PO PRN ×2 (03:00→09:33)
[2019-12-16 05:18] VITALS: BP 127/87
[2019-12-16 06:04] LABS: Basophils # (auto) 0.1 10 ^3/uL (0-0.2); Basophils % (auto) 1.8 % (0.0-2.0); Eosinophils # (auto) 0.2 10 ^3/uL (0-0.8); Eosinophils % (auto) 4.2 % (0.0-7.0); Hematocrit 35.6 % (41.0-53.0); Hemoglobin 11.3 g/dL (13.5-17.5); Lymphocytes # (auto) 1.5 10 ^3/uL (0.4-5.4); Mean Corpuscular Hemoglobin 27.1 pg (28.0-32.0); Mean Corpuscular Hgb Conc. 31.8 g/dL (32.0-36.0); Mean Corpuscular Volume 85.5 fL (80.0-100.0); Monocytes # (auto) 0.6 10 ^3/uL (0-1.3); Monocytes % (auto) 11.6 % (0.0-12.0); Neutrophils # (auto) 2.5 10 ^3/uL (1.6-8.6); Neutrophils % (auto) 51.4 % (37.0-80.0); Nucleated Red Blood Cells % 0.1 %; Platelet Count (auto) 239 10^3/uL (140-450); Red Blood Cells 4.16 10^6/uL (4.5-5.90); Red Cell Distribution Width 17.6 % (11.8-14.3); White Blood Cell 4.9 10^3/uL (4.4-10.8)
[2019-12-16 06:19] LABS: Potassium 3.7 mmol/L (3.5-5.1)
[2019-12-16 06:28] LABS: BUN/Creatinine Ratio 13.4; Calcium 8.6 mg/dL (8.5-10.1)
[2019-12-16] MEDS: FUROSEMIDE 40 MG/4 ML VIAL IV SCH (06:32)
[2019-12-16] MEDS: MEXILETINE HYDROCHLORIDE 150 MG CAP PO SCH ×2 (06:32→13:37)
[2019-12-16 09:00] VITALS: BP 111/64
[2019-12-16] MEDS ORDERED: SODIUM CHLORIDE 0.9 % NEB SOLN 3ML NEB ONE (09:05)
[2019-12-16] MEDS: POTASSIUM EFFERVESENT TAB 25 MEQ PO SCH (09:33)
[2019-12-16] MEDS: DABIGATRAN 75 MG CAP PO SCH (09:33)
[2019-12-16] MEDS: AZITHROMYCIN 250 MG TAB PO SCH (09:33)
[2019-12-16] MEDS: HCTZ 25 MG TAB PO SCH (09:34)
[2019-12-16] MEDS: ISOSORBIDE MONONITRATE ER 60 MG TAB PO SCH (09:34)
[2019-12-16] MEDS: LOSARTAN POTASSIUM 50 MG TAB PO SCH (09:34)
[2019-12-16] MEDS: FAMOTIDINE 20 MG TAB PO SCH (09:35)
[2019-12-16] MEDS: hydrALAZINE HCL 25 MG TAB PO SCH (09:35)
[2019-12-16] MEDS: ASPirin 81 mg TAB PO SCH (09:35)
[2019-12-16] MEDS: METOPROLOL TARTRATE 50 MG TAB PO SCH (09:35)
[2019-12-16 13:00] VITALS: BP 81/55
== END 2019-12-16 16:40 | disposition home or self-care (01) | DRG 292 ==
LOC: ER 19:13 → TELE 19:14 → TELE-WESTW 12-14 09:02
PROVIDERS: ADMIT Nurse Practitioner; ATTEND Family Medicine
DX: I11.0 Hypertensive heart disease with heart failure (principal); E44.0 Moderate protein-calorie malnutrition; I48.20 Chronic atrial fibrillation, unspecified; D68.69 Other thrombophilia; I48.92 Unspecified atrial flutter; J45.901 Unspecified asthma with (acute) exacerbation; J20.9 Acute bronchitis, unspecified; I50.43 Acute on chronic combined systolic (congestive) and diastolic (congestive) heart failure; I42.8 Other cardiomyopathies; E87.6 Hypokalemia; Z95.810 Presence of automatic (implantable) cardiac defibrillator; E78.5 Hyperlipidemia, unspecified; E11.21 Type 2 diabetes mellitus with diabetic nephropathy; K21.9 Gastro-esophageal reflux disease without esophagitis; E11.40 Type 2 diabetes mellitus with diabetic neuropathy, unspecified; F41.9 Anxiety disorder, unspecified; F17.210 Nicotine dependence, cigarettes, uncomplicated; J44.9 Chronic obstructive pulmonary disease, unspecified; Z79.01 Long term (current) use of anticoagulants; Z80.3 Family history of malignant neoplasm of breast; Z82.49 Family history of ischemic heart disease and other diseases of the circulatory system; Z98.1 Arthrodesis status; Z68.23 Body mass index [BMI] 23.0-23.9, adult
CPT/HCPCS: 36415; 71045; 80048; 80053; 81001; 82728; 83036; 83605; 83615; 83880; 84443; 84484; 85025; 85379; 85610; 85730; 86141; 87040; 87070; 87077; 87081; 87186; 87205; 93005; 94640; 96374; G0378

== ENCOUNTER 2020-01-05 11:14 | Inpatient (IN) | payer OTHER, MEDICARE ==
[~2020-01-05] VITALS: Ht 172.7 cm; Wt 77.0 kg
[2020-01-05 13:16] LABS: Basophils # (auto) 0.1 10 ^3/uL (0-0.2); Basophils % (auto) 1.3 % (0.0-2.0); Eosinophils # (auto) 0.2 10 ^3/uL (0-0.8); Eosinophils % (auto) 2.2 % (0.0-7.0); Hematocrit 37.7 % (41.0-53.0); Hemoglobin 11.6 g/dL (13.5-17.5); Lymphocytes # (auto) 1.7 10 ^3/uL (0.4-5.4); Mean Corpuscular Hgb Conc. 30.8 g/dL (32.0-36.0); Platelet Count (auto) 264 10^3/uL (140-450); Red Cell Distribution Width 18.7 % (11.8-14.3)
[2020-01-05 13:18] LABS: Lymphocytes % (auto) 22.1 % (10.0-50.0); Mean Corpuscular Hemoglobin 27.2 pg (28.0-32.0); Mean Corpuscular Volume 88.4 fL (80.0-100.0); Monocytes # (auto) 0.5 10 ^3/uL (0-1.3); Monocytes % (auto) 6.4 % (0.0-12.0); Neutrophils # (auto) 5.4 10 ^3/uL (1.6-8.6); Nucleated Red Blood Cells % 0.9 %; Red Blood Cells 4.26 10^6/uL (4.5-5.90); White Blood Cell 7.9 10^3/uL (4.4-10.8)
[2020-01-05 13:24] LABS: INR 1.71 (0.9-1.15); Partial Thromboplastin Time 66.8 sec (23.0-31.2)
[2020-01-05 13:25] LABS: Albumin 3.2 g/dL (3.4-5.0); Anion Gap 8 (5-15); Blood Urea Nitrogen 18 mg/dL (7-18); Calcium 8.8 mg/dL (8.5-10.1); Carbon Dioxide 21 mmol/L (21-32); Chloride 109 mmol/L (98-107); Glucose 115 mg/dL (74-106); Magnesium 2.7 mg/dL (1.6-2.6); Sodium 138 mmol/L (136-145)
[2020-01-05] MEDS ORDERED: ONDANSETRON HCL 4 MG/2 ML VIAL IV ONE (13:30)
[2020-01-05 13:32] LABS: Alanine Aminotransferase 22 U/L (16-61); Alkaline Phosphatase 106 U/L (45-117); Aspartate Aminotransferase 26 U/L (15-37); BUN/Creatinine Ratio 10.8; Bilirubin, Total 1.4 mg/dL (0.2-1.0); GFR African American 53 mL/min; GFR Non-African American 44 mL/min
[2020-01-05] MEDS ORDERED: ONDANSETRON HCL 4 MG/2 ML VIAL ONE (13:32)
[2020-01-05 13:36] LABS: Potassium 5.9 mmol/L (3.5-5.1)
[2020-01-05] MEDS ORDERED: FUROSEMIDE 20 MG/2 ML VIAL IV ONE (15:15)
[2020-01-05] MEDS ORDERED: SODIUM BICARBONATE 8.4 % INJ 50ML VIAL IV ONE (15:15)
[2020-01-05] MEDS ORDERED: CALCIUM CHL 100MG/ML 500 MG in D5W 5% 100 ML IV ONE (15:15)
[2020-01-05] MEDS ORDERED: MORPHINE SULF INJ 2 MG/ML SYRINGE 1ML IV PRN ×2 (15:45)
[2020-01-05] MEDS ORDERED: FUROSEMIDE 100 MG/10ML VIAL IV ONE (15:45)
[2020-01-05] MEDS ORDERED: InsuLIN REG 1unit/0.01ml Soln (100units/ml) IV ONE (15:45)
[2020-01-05] MEDS ORDERED: DOCUSATE SOD 100 MG CAP PO PRN (15:45)
[2020-01-05] MEDS ORDERED: ALUM & MAG HYDROX-SIMETH LIQ(MAALOX) 30 ML PO PRN (15:45)
[2020-01-05] MEDS ORDERED: ACETAMINOPHEN 325 MG TAB PO PRN (15:45)
[2020-01-05] MEDS ORDERED: ALBUTEROL SULF 2.5 MG/0.5ML(0.5%) NEB SOLN NEB ONE (15:45)
[2020-01-05] MEDS ORDERED: ONDANSETRON HCL 4 MG/2 ML VIAL IV PRN (15:45)
[2020-01-05] MEDS ORDERED: SODIUM ZIRCONIUM CYCL 10 GM PAK PO ONE (15:45)
[2020-01-05] MEDS ORDERED: DEXTROSE (50%) 50ML SYRG IV ONE (15:45)
[2020-01-05] MEDS ORDERED: SODIUM BICARBONATE 8.4% INJ 50ML SYRINGE IV ONE (15:45)
[2020-01-05] MEDS ORDERED: NITROGLYCERIN 0.4 MG SL TAB SL PRN (15:45)
[2020-01-05] MEDS ORDERED: CALCIUM CHL 100MG/ML 1,000 MG in D5W 5% 100 ML IV ONE (15:45)
[2020-01-05] MEDS ORDERED: HYDROcodone-ACET 5/325MG TAB PO PRN (15:45)
[2020-01-05] MEDS ORDERED: AMIO200T33 PO (16:28)
[2020-01-05] MEDS ORDERED: BUDE1AER4 IN (16:28)
[2020-01-05] MEDS ORDERED: ALBUAER3 IN (16:28)
[2020-01-05] MEDS ORDERED: ARTISOL13 EACHEYE (16:28)
[2020-01-05] MEDS ORDERED: METO10TA3 PO (16:28)
[2020-01-05] MEDS ORDERED: MET50T PO (16:28)
[2020-01-05] MEDS ORDERED: DEXTROSE 10% 1,000 ML IV ONE (16:30)
[2020-01-05] MEDS ORDERED: NITR0.4S29 SL ×2 (16:31→16:39)
[2020-01-05] MEDS ORDERED: NICO7DIS31 TD (16:31)
[2020-01-05] MEDS ORDERED: ASPI-498 PO (16:36)
[2020-01-05] MEDS ORDERED: SENN-46 PO (16:38)
[2020-01-05] MEDS ORDERED: TAMS1CAP25 PO (16:40)
[2020-01-05] MEDS: DEXTROSE 10% 1,000 ML IV SCH (16:45)
[2020-01-05 17:13] LABS: Urine Amorphous Crystal FEW /hpf (None Seen); Urine Bacteria MOD /hpf (None Seen); Urine Blood 3+ /uL (Negative); Urine Hyaline Cast MANY /lpf (0 - 2); Urine Mucus FEW (None Seen); Urine Specific Gravity 1.016 (1.001-1.035); Urine WBC 52 /hpf (0 - 3)
[2020-01-05] MEDS ORDERED: LID35TP EX (17:21)
[2020-01-05] MEDS ORDERED: TIOT17SP IN (17:22)
[2020-01-05 17:26] LABS: Alcohol, Urine < 3.0 mg/dL (0-10); Amphetamine Screen, Urine NEGATIVE (NEGATIVE); Barbiturate Scree,Urine NEGATIVE (NEGATIVE); Benzodiazephine Screen, Urine NEGATIVE (NEGATIVE); Cocaine Screen, Urine NEGATIVE (NEGATIVE); Opiate Scree,Urine POSITIVE (NEGATIVE); Phencyclidine Screen, Urine NEGATIVE (NEGATIVE)
[2020-01-05 17:35] LABS: Cannabinoid Screen, Urine POSITIVE (NEGATIVE)
[2020-01-05 18:20] LABS: Lactic Acid w/Reflex 6.9 mmol/L (0.4-2.0)
[2020-01-05] MEDS ORDERED: SODIUM CHLORIDE 0.9% 3,000 ML IV ONE (19:30)
[2020-01-05] MEDS ORDERED: SODIUM CHLORIDE 0.9% 2,000 ML IV ONE (20:00)
[2020-01-05] MEDS ORDERED: ALBUTEROL SULF HFA 90MCG INH 200DOSE IN SCH (22:00)
[2020-01-05] MEDS: SODIUM ZIRCONIUM CYCL 10 GM PAK PO SCH (23:28)
[2020-01-06] VITALS (56 sets, daily range): BP systolic 36–171; BP diastolic 20–102
--- NOTE | 2020-01-06 00:03 | NUR ---
RECEIVED REPORT FROM ER NURSE (REGAlejandro) TO RESUME CARE OF PATIENT. NURSE STATES HR AFIB 110-130, ADDRESSED CONCERNS FOR PATIENT HR AFIB ASKED IF ANYTHING WAS GIVEN FOR THE HEART RATE AND STATES NOTHING WAS GIVEN, AND THAT PATIENT BEING TRANSFERED TO FLOOR WITH NO RATE CONTROL. Addendum: 01/06/20 at 0040 by BOBBY CABRERA RN RN ER NURSE ALSO REPORT K-5.9 UPON ARRIVAL, PT WAS GIVEN HYPERKALEMIA PROTOCOL WITH INSULIN AND PT BECAME HYPOGLYCEMIC AND IS NOW ON D10 INFUSION. REPEAT K-5.9 NO CHANGE NO FURTHER INTERVENTIONS WAS GIVEN TO CORRECT POTASSIUM
--- NOTE | 2020-01-06 00:50 | NUR ---
Admit to [facility] admitted to [facility] via gurney on desk monitor for hyperkalemia with EKG changes, Acute exacerbation of heart failure, and portable 02 8L oxymizer, has valdez with blood tinged urine draining to gravity and continues on D10% @ 60ml/hr to iv access 20G MONI. Patient transfered to bed, connected to unit monitoring and oxygen, and weighed by bedscale. Patient oriented to BOBBY CABRERA RN primary RN, unit, room, bed, and unit policies regarding patient care and visiting hours. All questions and concerns addressed, patient verbalized understanding.
--- NOTE | 2020-01-06 01:09 | NUR ---
AFIB PATIENT CURRENTLY AFIB 120-160S. NOTHING GIVEN FOR RATE CONTROL WHILE IN ER AND NOTHING IN ADMISSION ORDERS. PATIENT CONTINUES ON D10 @ 60ML/HR DUE TO HYPOGLYCEMIA WITH NO GLUCOSE MONTIORING. PAGED HOSPITALIST FOR ORDERS. Addendum: 01/06/20 at 0146 by BOBBY CABRERA RN RN HOSPITALIST CALLED BACK RECEIVED ORDER FOR CARDIZEM 10MG IV X1 NOW Addendum: 01/06/20 at 0205 by BOBBY CABRERA RN RN ADMINISTERED CARDIZEM 10MG IV X1 PRESCRIBED, PT CURRENTLY AFIB 80-90 WITH OCCASIONAL PVCS.
[2020-01-06] MEDS ORDERED: dilTIAZem 25 MG/5 ML VIAL IV ONE (01:45)
--- NOTE | 2020-01-06 02:30 | NUR ---
SOB PATIENT STATES HE HAS SOB TIGHTNESS IN HIS CHEST AND REGULARLY USES ALBUTEROL INHALER. PATIENT CURRENTLY ON 10L OXYMIZER TACHYPNEIC 30S. REQUESTING BREATHING TREATMENT, RT PAGED FOR BREATHING TX.
[2020-01-06] MEDS ORDERED: ALBUTEROL SULF 2.5 MG/0.5ML(0.5%) NEB SOLN ONE ×2 (02:38→02:39)
--- NOTE | 2020-01-06 03:15 | NUR ---
SOB/ANXIETY PATIENT CURRENTLY TACHYPNEIC @32, PATIENT STATES HE STILL IS HAVING TROUBLE BREATHING. WAS GIVEN BREATHING TREATMENT O2 SAT 98% ON 10L OXYMIZER WITH HOB HIGH FOWLERS. PATIENT CLEAR BREATH SOUNDS AND DIMINISHED AT BASES. PATIENT WAS GIVEN LASIX EARLIER IN ER WITH TOTAL OF 335ML URINE OUTPUT PRIOR TO TRANSFER. PATIENT STATES HE NEEDS SOMETHING FOR ANXIETY HE USUALLY TAKES CLONAZEPAM FOR HIS ANXIETY. CAESAR HOSPITALIST FOR ORDERS. Addendum: 01/06/20 at 0335 by BOBBY CABRERA RN RN RECEIVED ORDERS FOR ATIVAN 0.5MG IV X1 NOW FOR ANXIETY AND TACHYPNEA. KRISTY.
[2020-01-06] MEDS ORDERED: LORazepam 2MG/ML-1ML VIAL IV ONE (03:30)
[2020-01-06] MEDS: SODIUM ZIRCONIUM CYCL 10 GM PAK PO SCH ×3 (03:43→22:00)
[2020-01-06] MEDS: DEXTROSE 10% 1,000 ML IV SCH (04:40)
[2020-01-06] MEDS ORDERED: DEXTROSE 10% 1,000 ML IV SCH (05:30)
[2020-01-06] MEDS ORDERED: ACETAMINOPHEN 500 MG TAB PO PRN (05:45)
[2020-01-06] MEDS ORDERED: CALCIUM CHL 100MG/ML 1,000 MG in D5W 5% 100 ML IV ONE (05:45)
[2020-01-06] MEDS ORDERED: SODIUM BICARBONATE 8.4% INJ 50ML SYRINGE IV ONE ×3 (05:45→12:57)
[2020-01-06] MEDS ORDERED: DEXTROSE (50%) 50ML SYRG IV ONE ×2 (05:45→10:15)
[2020-01-06] MEDS ORDERED: SODIUM ZIRCONIUM CYCL 10 GM PAK PO ONE (05:45)
[2020-01-06] MEDS ORDERED: cefTRIAXone 1GM/50ML D5W 50 ML IV ONE (05:45)
[2020-01-06] MEDS ORDERED: AZITHROMYCIN 500MG/ 250ML 250 ML IV ONE (05:45)
[2020-01-06] MEDS ORDERED: FUROSEMIDE 40 MG/4 ML VIAL IV ONE (05:45)
[2020-01-06] MEDS ORDERED: FUROSEMIDE 40 MG/4 ML VIAL IV SCH (06:00)
[2020-01-06] MEDS ORDERED: LACTULOSE 20Gm/30ML SOLN PO PRN (06:00)
[2020-01-06] MEDS ORDERED: ALBUTEROL SULF HFA 90MCG INH 200DOSE IN SCH (06:00)
[2020-01-06] MEDS ORDERED: SODIUM CHLORIDE 0.9% 1,000 ML IV ONE (06:00)
[2020-01-06] MEDS ORDERED: SODIUM CHLORIDE 0.9% 1,000 ML IV SCH (06:00)
[2020-01-06] MEDS ORDERED: ACETAMINOPHEN 325 MG TAB PO PRN (06:30)
--- NOTE | 2020-01-06 07:00 | NUR ---
CODE BLUE/INTUBATION PT WENT UNRESPONSIVE AND PULSELESS WITH AGONAL BREATHING. CODE BLUE WAS CALLED AND CPR STARTED. PT WAS INTUBATED BY JULIA NGUYEN WITH ETT 7.5 AT 24CM LIP, SECURED WITH HOLISTER, POSITIVE COLOR CHANGE ON ETCO2 DETECTOR. PLACED ON VENTILATOR V16 WITH HEATED WIRE CIRCUIT. BILATERAL DIM BREATH SOUNDS, BILAT CHEST RISE. ON VENT SETTINGS: AC, RR 14, VT 500, PEEP +0, FIO2 100%. ALARMS SET AND AUDIBLE. SUCTIONED FOR SMALL THIN CLEAR SECRETIONS, SPUTUM SAMPLE OBTAINED AND SENT TO LAB. VENT IS PLUGGED INTO RED OUTLET, AMBU BAG/MASK AVAILABLE AT BEDSIDE. ABG TO FOLLOW. WILL CONT TO MONITOR.
[2020-01-06] MEDS ORDERED: NOREPINEPHRINE 8 MG/250ML KIT 250 ML IV ONE (07:11)
[2020-01-06] MEDS ORDERED: MIDAZOLAM DRIP 50 mg/50mL 50 ML IV ONE (07:13)
--- NOTE | 2020-01-06 07:15 | NUR ---
JOHANN CHAUHAN WENT TO PATIENT BEDSIDE CALLED BY SUSANNAH GUILLEN, PATIENT IS AGONAL BREATHING AND NOT RESPONSIVE. PATIENT PACED RHYTHM IN 70S ON MONITOR AND WAS AFIB UPON ARRIVAL TO FLOOR. PATIENT PULSE OXIMETRY NOT DETECTED. PULSES STILL PALPABLE. CODE ASSIST, STAFF AT BEDSIDE. PULSES CHECK NO PULSE. JOHANN CHAUHAN ALARMED. BACK BOARD PLACED. COMPRESSIONS INITIATED AND RT WITH AMBU BAG. 1 DOSE EPINEPHRINE IV GIVEN, THEN 1 DOSE OF SODIUM BICARB IV GIVEN. PULSES CHECK THREADY, COMPRESSIONS INITIATED. HOSPITALIST PATRICK INTUBATED PATIENT. ORDERED VERSED GTT. PATIENT BP 151/84 NO LEVOPHED INDICATED. PATIENT REVIVED WITH PULSES PALPABLE TO EXTREMITIES.
[2020-01-06] MEDS ORDERED: SODIUM BICARBONATE 8.4 % INJ 50ML VIAL IV ONE ×2 (08:04→10:31)
--- NOTE | 2020-01-06 08:05 | NUR ---
FAMILY RICO LOCKHART ON FACE SHEET CONTACTED RE: SECOND CODE BLUE. WHILE WOULD LIKE TO CONTINUE ALL MEASURES AND IS ON HIS WAY OVER.
[2020-01-06] MEDS ORDERED: VASOPRESSIN 20 UNIT/ML ONE (08:14)
[2020-01-06 09:12] LABS: Hemoglobin 10.1 g/dL (13.5-17.5)
[2020-01-06 09:13] LABS: Hematocrit 34.7 % (41.0-53.0); Mean Corpuscular Volume 93.1 fL (80.0-100.0); Platelet Count (auto) 152 10^3/uL (140-450); Red Blood Cells 3.73 10^6/uL (4.5-5.90); Red Cell Distribution Width 18.7 % (11.8-14.3)
[2020-01-06 09:17] LABS: Basophils % (manual) 0 (0.0-2.0); Blast Cells 0; Eosinophils % (manual) 0 (0-7); Promyelocytes % 0; Reactive Lymphocytes 0
--- NOTE | 2020-01-06 09:25 | NUR ---
PAGED HOSPITALIST TO REPORT ABG RESULTS. AWAITING CALL BACK.
[2020-01-06 09:26] LABS: Albumin 2.5 g/dL (3.4-5.0); Calcium 7.3 mg/dL (8.5-10.1); Magnesium 2.4 mg/dL (1.6-2.6)
[2020-01-06 09:31] LABS: Lactic Acid w/Reflex 12.1 mmol/L (0.4-2.0)
[2020-01-06 09:35] LABS: BUN/Creatinine Ratio 8.9; Bilirubin, Total 3.4 mg/dL (0.2-1.0); CRP High Sensitivity 1.27 mg/dL (< 0.3); Total Protein 5.4 g/dL (6.4-8.2)
--- NOTE | 2020-01-06 09:35 | NUR ---
PAGED HOSPITALIST 2ND ATTEMPT, AWAITING CALL BACK.
[2020-01-06] MEDS ORDERED: PHENYLEPHRINE IV 250 ML IV ONE ×2 (09:41→14:14)
[2020-01-06 09:50] LABS: Potassium 6.7 mmol/L (3.5-5.1)
[2020-01-06] MEDS ORDERED: ZINC SULFATE 220mg CAP or TAB PO SCH (10:00)
[2020-01-06] MEDS ORDERED: BUDESONIDE (INHALATION) 180 MCG IH IN SCH (10:00)
[2020-01-06] MEDS ORDERED: DexAMETHasone SOD PHOS 10MG/1ML VIAL INJ IV SCH (10:00)
[2020-01-06] MEDS ORDERED: APIXABAN 5 MG TAB PO SCH (10:00)
[2020-01-06] MEDS ORDERED: ASCORBIC ACID 1,000 MG TAB PO SCH (10:00)
[2020-01-06] MEDS ORDERED: CHOLECALCIFEROL (VITD3) 2,000 UNIT CAP PO SCH (10:00)
[2020-01-06] MEDS ORDERED: ENOXAPARIN SOD 40 MG/0.4 ML SYRINGE SC SCH (10:00)
[2020-01-06] MEDS ORDERED: METOPROLOL TARTRATE 25 MG TAB PO SCH (10:00)
[2020-01-06] MEDS ORDERED: DOCUSATE SOD 100 MG CAP PO SCH (10:00)
[2020-01-06] MEDS ORDERED: AMIODARONE HCL 200 MG TAB PO SCH (10:00)
[2020-01-06] MEDS ORDERED: ASPirin 81 mg TAB PO SCH (10:00)
[2020-01-06] MEDS ORDERED: NICOTINE 14 MG/24HR TOPICAL PATCH TD SCH (10:00)
[2020-01-06] MEDS ORDERED: PHENYLEPHRINE IV 250 ML IV SCH (10:05)
[2020-01-06] MEDS: EPINEPHrine HCL 250 ML IV SCH ×2 (10:05→23:17)
[2020-01-06] MEDS ORDERED: NOREPINEPHRINE 8 MG/250ML KIT 250 ML IV SCH (10:05)
--- NOTE | 2020-01-06 10:06 | NUR ---
DR COX IN [facility] TO SEE PT. REPORTED ABG RESULTS, NEW ORDERS RECEIVED. WILL CARRY OUT
[2020-01-06] MEDS ORDERED: EPINEPHrine HCL 250 ML IV ONE (10:12)
--- NOTE | 2020-01-06 10:12 | NUR ---
VENT CHANGES PT IS NOW ON AC, RR 18, VT 500, PEEP +5, FIO2 100%. POX STILL NOT CORRELATING DUE TO PT'S POOR PERFUSION, MD IS AWARE. ALARMS ADJUSTED AND AUDIBLE. HEATING BLANKET IN PLACE. RN AT BEDSIDE. WILL CONT TO MONITOR.
[2020-01-06] MEDS ORDERED: DEXTROSE 50% SYRINGE 50 ML IV ONE ×2 (10:13→10:32)
[2020-01-06] MEDS ORDERED: SODIUM BICARBONATE 50ML VIAL 150 ML in D5W 5% 1,000 ML IV SCH ×4 (10:15→18:30)
[2020-01-06] MEDS ORDERED: CALCIUM GLUC 4.65meq/50ml D5AE 50 ML IV ONE (10:15)
[2020-01-06] MEDS ORDERED: ALBUTEROL SULF 2.5 MG/0.5ML(0.5%) NEB SOLN NEB ONE (10:15)
[2020-01-06] MEDS ORDERED: VASOPRESSIN 50 UNITS in D5W 5% 247.5 ML IV SCH ×2 (10:15→22:00)
[2020-01-06] MEDS ORDERED: BUMETANIDE 2.5mg/10ml (0.25 mg/ml) INJ IV ONE (10:30)
[2020-01-06] MEDS ORDERED: InsuLIN REG 1unit/0.01ml Soln (100units/ml) ONE (10:37)
[2020-01-06] MEDS: BUDESONIDE (INHALATION) 0.5 MG/2 ML NEB NEB SCH ×2 (10:41→22:45)
[2020-01-06] MEDS ORDERED: LINEZOLID 600MG/300ML 300 ML IV SCH ×2 (11:00→22:00)
[2020-01-06] MEDS ORDERED: PANTOPRAZOLE 40 MG/10 ML VIAL INJ IV ONE (11:00)
[2020-01-06] MEDS ORDERED: DEXTROSE (50%) 50ML SYRG IV PRN (11:00)
[2020-01-06 11:24] LABS: Band Neutrophils % (manual) 11; Lymphocytes % (manual) 19 (10.0-50.0); Metamyelocytes % 4; Monocytes % (manual) 6 (0-12); Myelocytes % 2
[2020-01-06] MEDS: InsuLIN REG 1unit/0.01ml Soln (100units/ml) SC SCH ×2 (12:00→18:00)
[2020-01-06] MEDS: ACCU-CHEK COMFORT CURVE STRIP VI SCH ×2 (12:00→18:00)
[2020-01-06] MEDS ORDERED: PHENYLEPHRINE INJ 40 MG in SODIUM CHL 0.9% 250 ML IV SCH (12:06)
[2020-01-06] MEDS: NOREPINEPHRINE BITARTRATE 16 MG in SODIUM CHL 0.9% 250 ML IV SCH ×2 (12:06→22:00)
[2020-01-06] MEDS ORDERED: EPINEPHrine HCL INJECTION 8 MG in D5W 5% 250 ML IV SCH (12:06)
[2020-01-06] MEDS ORDERED: DIGOXIN (250MCG/ML) 2 ML AMPULE IV ONE (12:45)
[2020-01-06] MEDS ORDERED: LINEZOLID 600MG/300ML 300 ML IV ONE (12:45)
[2020-01-06] MEDS ORDERED: CALCIUM CHLOR(10%) 100MG/ML 10ML SYRINGE IV ONE (12:57)
[2020-01-06] MEDS ORDERED: EPINEPHrine HCL 1 MG/10 ML SYRG IV ONE (12:57)
[2020-01-06] MEDS ORDERED: SODIUM CHL 0.9% 1000 ML BAG XX ONE (13:30)
[2020-01-06 13:39] LABS: Hematocrit 37.5 % (41.0-53.0); Hemoglobin 10.3 g/dL (13.5-17.5); Mean Corpuscular Hemoglobin 26.8 pg (28.0-32.0); Mean Corpuscular Hgb Conc. 27.5 g/dL (32.0-36.0); Mean Corpuscular Volume 97.4 fL (80.0-100.0); Platelet Count (auto) 175 10^3/uL (140-450); Red Blood Cells 3.85 10^6/uL (4.5-5.90); Red Cell Distribution Width 19.9 % (11.8-14.3); White Blood Cell 20.5 10^3/uL (4.4-10.8)
[2020-01-06] MEDS ORDERED: AMIODARONE 450mg/250ml AE 250 ML IV SCH ×2 (13:39→19:39)
[2020-01-06 13:41] LABS: Basophils % (manual) 0 (0.0-2.0); Blast Cells 0; Eosinophils % (manual) 0 (0-7); Promyelocytes % 0; Reactive Lymphocytes 0
[2020-01-06] MEDS ORDERED: HEPARIN SODIUM (PORCINE) 5000 UNITS/ML 1ML VIAL IV ONE ×2 (13:45)
[2020-01-06 13:57] LABS: Albumin 2.4 g/dL (3.4-5.0); Calcium 7.5 mg/dL (8.5-10.1); Magnesium 2.4 mg/dL (1.6-2.6); Potassium 5.2 mmol/L (3.5-5.1)
[2020-01-06] MEDS ORDERED: fentaNYL Drip 2500mCg/250mlNS 250 ML IV SCH (13:58)
[2020-01-06] MEDS ORDERED: MIDAZOLAM DRIP 50 mg/50mL 50 ML IV SCH (13:58)
[2020-01-06] MEDS ORDERED: PROPOFOL 100 ML IV SCH (13:58)
[2020-01-06 13:59] LABS: Lactic Acid w/Reflex 9.5 mmol/L (0.4-2.0)
[2020-01-06] MEDS ORDERED: ALBUTEROL SULF 2.5 MG/0.5ML(0.5%) NEB SOLN NEB SCH (14:00)
--- NOTE | 2020-01-06 14:05 | NUR ---
JOSE CONTACTED FOR DIALYSIS CATHETER INSERTION. JOSE AGREED.
[2020-01-06] MEDS: IPRATROPIUM BROM 0.5 MG/2.5ML INH SOL NEB SCH ×2 (14:06→22:45)
[2020-01-06] MEDS: LEVALBUTEROL HCL 1.25 MG/3 ML NEB NEB SCH ×2 (14:06→22:45)
[2020-01-06 14:15] LABS: BUN/Creatinine Ratio 8.8; Bilirubin, Total 3.8 mg/dL (0.2-1.0); Total Protein 5.4 g/dL (6.4-8.2)
--- NOTE | 2020-01-06 14:20 | NUR ---
TITRATED FIO2 DOWN TO 50%, PT TOLERATING CHANGES MAINTAINING SPO2 94%.
[2020-01-06 14:43] LABS: Band Neutrophils % (manual) 24; Lymphocytes % (manual) 5 (10.0-50.0); Metamyelocytes % 6; Monocytes % (manual) 6 (0-12); Myelocytes % 3
[2020-01-06] MEDS ORDERED: ALBUMIN 25% 100 ML IV ONE (15:30)
[2020-01-06] MEDS ORDERED: ALBUMIN 25% 100 ML IV PRN (15:30)
[2020-01-06] MEDS: PANTOPRAZOLE 40mg/50ML NS AE 50 ML IV SCH ×2 (16:30→21:30)
[2020-01-06] MEDS ORDERED: MEROPENEM 1GM IVPB 100 ML IV SCH (17:00)
[2020-01-06 17:16] LABS: % Iron Saturation 26.1 % (20-55)
[2020-01-06 17:19] LABS: Albumin 2.1 g/dL (3.4-5.0); BUN/Creatinine Ratio 7.9; Calcium 7.8 mg/dL (8.5-10.1); Potassium 4.6 mmol/L (3.5-5.1)
--- NOTE | 2020-01-06 17:19 | NUR ---
FOREST RANGER TECHNICIAN AT BEDSIDE. NEW ORDERS IN PLACE. SEE MD NOTES.
[2020-01-06 17:20] LABS: Phosphorus 6.7 mg/dL (2.5-4.90)
--- NOTE | 2020-01-06 17:21 | NUR ---
GI CONSULT PER DR. PARK, PATIENT IS TOO UNSTABLE FOR INTERVENTIONS. TRANSFUSE ORDERED. PROTONIX GTT TO INFUSED AND H/H TO BE MONITORED.
--- NOTE | 2020-01-06 17:21 | NUR ---
PACEMAKER LOCAL GOVERNMENT LEGISLATOR AWARE OF CONSULT AND HAS ARRIVED TO UNIT.
[2020-01-06 17:27] LABS: Bilirubin, Total 3.2 mg/dL (0.2-1.0); Total Protein 4.8 g/dL (6.4-8.2)
[2020-01-06 17:48] LABS: Hemoglobin 9.3 g/dL (13.5-17.5)
[2020-01-06 17:50] LABS: Hematocrit 31.9 % (41.0-53.0); Mean Corpuscular Hemoglobin 26.9 pg (28.0-32.0); Mean Corpuscular Hgb Conc. 29.3 g/dL (32.0-36.0); Mean Corpuscular Volume 91.7 fL (80.0-100.0); Platelet Count (auto) 160 10^3/uL (140-450); Red Blood Cells 3.47 10^6/uL (4.5-5.90); Red Cell Distribution Width 18.6 % (11.8-14.3); White Blood Cell 17.8 10^3/uL (4.4-10.8)
[2020-01-06] MEDS ORDERED: PIPERACILLIN-TAZOB 2.25GM 50 ML IV SCH (18:00)
[2020-01-06] MEDS ORDERED: TAMSULOSIN HYDROCHLORIDE 0.4 MG CAP PO SCH (18:00)
[2020-01-06] MEDS: HYDROCORTISONE SOD SUCC 100 MG/2ML INJ VIAL IV SCH (18:00)
[2020-01-06 18:21] LABS: Basophils % (manual) 0 (0.0-2.0); Blast Cells 0; Eosinophils % (manual) 0 (0-7); Promyelocytes % 0; Reactive Lymphocytes 0
--- NOTE | 2020-01-06 18:21 | NUR ---
UNABLE TO INTERROGATE PACEMAKER PACEMAKER REP UNABLE TO INTERROGATE PACEMAKER. REP CONTACTED CORRECT REP AND [employer] TO ARRIVE TONIGHT TO COMPLETE INTERROGATION.
[2020-01-06 20:07] LABS: INR > 8.0 (0.9-1.15); Partial Thromboplastin Time 109.8 sec (23.0-31.2)
--- NOTE | 2020-01-06 20:30 | NUR ---
Dials GENTLEMAN HER TO INTERROGATE THE PACEMAKER. NOTHING IS WRONG.
[2020-01-06 20:49] LABS: Band Neutrophils % (manual) 5; Lymphocytes % (manual) 15 (10.0-50.0); Monocytes % (manual) 6 (0-12)
[2020-01-06 20:50] LABS: Metamyelocytes % 3; Myelocytes % 1
--- NOTE | 2020-01-06 21:00 | NUR ---
ANTIBIOTICS IN. LOKELMA GIVEN. SBP DROPPING. 50% V PACED. WARMING BLANKET ON. TEMP 97.3. SEN: BLOOD IN TUBING. NO URINE OUTPUT. SBP IN THE 40S.
[2020-01-06] MEDS ORDERED: ATORVASTATIN 20 MG TAB PO SCH (22:00)
--- NOTE | 2020-01-06 22:34 | NUR ---
SPOKE WITH THE SISTER , SINDI. SHE INFORMED THE BROTHERS . NIECE CALLED. SHE IS INFORMED. THE OVERALL DECISION FOR CODE STATUS IS THAT WE DO EVERYTHING. CALL IN TO HOSPITALIST. SBP 37-48. O2 SAT IS READING POORLY. O2 SAT IS 30%. MAX ON LEVOPHED, EPI, NEOSYNEPHRINE AND VASOPRESSIN. BICARB DRIP AT 60ML/HR. PROTONIX DRIP ON. JUST IN THE LAST 5 MINUTES HE IS 100% VPACED. HR OF 70.
--- NOTE | 2020-01-06 22:39 | NUR ---
SBP FALLING. 50% VPACED. SCLERAL EDEMA BILATERALLY . PUPILS 3 AND FIXED. DUSKY FACE. UNABLE TO INSERT NGT THROUGH RIGHT NARE OR ORALLY. DID GET A 16FR IN THE LEFT NARE. POSITION CHECKED. WITHDREW 150 OF WATERY RED DRNG. ORAL CARE DONE. ORALLY INTUBATED. CUFF INFLATED. LUNGS CLEAR. ON 100% NRB. ABDOMEN LARGE, ROUND AND BOUNCY. LEFT RADIAL: UNABLE TO GET PULSE WITH DOPPLER. ONLY ABLE TO GET POSTIB PULSES WITH DOPPLER. WARMING BLANKET ON PATIENT. TEMP 97.3 RECTALLY. SITTING IN A DARK RED/BLACK LIQUID STOOL. SBP 100. MAX ON EPINEPHRINE, LEVOPHED, VASOPRESSIN AND NEOSYNEPHRINE. ON A BICARB DRIP WITH 3 AMPS . SEN: ONLY BLOOD LIQUID IN TUBING. NO EDEMA IN LEGS. ON AC OF 24, BREATHING 24. NEW DEFIB PADS PLACED. TOOK OFF OF CPR BOARD. SBP 100.
[2020-01-06 22:40] LABS: Hematocrit 31.5 % (41.0-53.0); Hemoglobin 8.9 g/dL (13.5-17.5)
--- NOTE | 2020-01-06 23:35 | NUR ---
SPOKE WITH DR GARZA. NO FURTHER ORDERS. BACK TO 70% V PACED. O2 SAT IS 60%. NIECE IS HERE. UPDATED HER ON THE PATIENT'S CONDITION AND THE RESULTS OF THE CONVERSATION WITH DR GARZA DESCRIBING WHAT IS HAPPENING, WHAT WILL EVENTUALLY HAPPEN. SBP 41
[2020-01-07] VITALS (13 sets, daily range): BP systolic 20–44; BP diastolic 17–53
[2020-01-07] MEDS: InsuLIN REG 1unit/0.01ml Soln (100units/ml) SC SCH
[2020-01-07] MEDS: ACCU-CHEK COMFORT CURVE STRIP VI SCH
--- NOTE | 2020-01-07 00:50 | NUR ---
ACCUCHECK 38. THIS READING WAS THE BEST OF 2. ONE AMP OF D50 GIVEN.
--- NOTE | 2020-01-07 01:05 | NUR ---
REPEAT ACCUCHECK 96
--- NOTE | 2020-01-07 02:45 | NUR ---
UNABLE TO GET THE BLOOD PRESSURE. PATIENT WENT ASYSTOLIC. JOHANN CHAUHAN CALLED.
--- NOTE | 2020-01-07 02:46 | NUR ---
CODE BLUE INITIATED. See RN charting
--- NOTE | 2020-01-07 03:00 | NUR ---
Called ER to ask Dr. Dhaliwal to come run the code
[2020-01-07] MEDS ORDERED: SODIUM BICARBONATE 8.4 % INJ 50ML VIAL IV ONE (03:05)
[2020-01-07] MEDS ORDERED: CALCIUM CHLOR(10%) 100MG/ML 10ML SYRINGE IV ONE (03:12)
[2020-01-07] MEDS ORDERED: EPINEPHrine HCL 1 MG/10 ML SYRG IV ONE ×2 (03:12)
[2020-01-07] MEDS ORDERED: SODIUM BICARBONATE 8.4% INJ 50ML SYRINGE IV ONE ×2 (03:12)
--- NOTE | 2020-01-07 03:13 | NUR ---
JOHANN CHAUHAN CALLED. NIECE ON HER WAY HERE
--- NOTE | 2020-01-07 03:13 | NUR ---
SHO pronounced by Dr. Anthony Dhaliwal
--- NOTE | 2020-01-07 03:48 | NUR ---
[facility] CALLED [facility] AND SPOKE WITH DELVIN. ALL QUESTIONS ANSWERED. IT WAS DETERMINED THAT PATIENT IS NOT ELIGIBLE. REFERENCE/CASE # GIVEN: [id number]
--- NOTE | 2020-01-07 03:54 | NUR ---
CALLED [employer] MANA[employer] OFFICE SPOKE WITH JEANETTE. LEFT PATIENT INFORMATION AND CALL BACK NUMBER. PENDING FOR [employer] MANAGER TO CALL BACK.
--- NOTE | 2020-01-07 04:15 | NUR ---
RECEIVED CALL BACK FROM [employer] SPOKE WITH MEDICAL SCHEDULER [employer] ASIA JIMENEZ. PER ASIA, "THIS IS NOT REPORTABLE AT THIS TIME, I AM RELEASING THE BODY". BODY WAS RELEASED.
[2020-01-07] MEDS ORDERED: cefTRIAXone 1GM/50ML D5W 50 ML IV SCH (09:00)
[2020-01-07] MEDS ORDERED: AZITHROMYCIN 500MG/ 250ML 250 ML IV SCH (10:00)
[2020-01-07] MEDS ORDERED: PANTOPRAZOLE 40 MG/10 ML VIAL INJ IV SCH (10:00)
[2020-01-10 11:19] LABS: Hepatitis B Surface Antibody Negative
[2020-01-10 12:49] LABS: Hepatitis A Ab IgM Negative; Hepatitis B Core IgM Negative
[2020-01-10 12:50] LABS: Hepatitis B Surface Antigen Negative (Negative); Hepatitis C Antibody Negative (Negative)
== END 2020-01-07 03:13 | disposition expired | DRG 871 ==
LOC: ER 11:14 → TELE 11:15 → ICU CENTRL 23:40 → DOU IN ICU 23:58
PROVIDERS: ADMIT Hospitalist; ATTEND Internal Medicine
PROC: 5A12012 Performance of Cardiac Output, Single, Manual (ICD-10-PCS; principal; 2020-01-06)
PROC: 4B02XTZ Measurement of Cardiac Defibrillator, External Approach (ICD-10-PCS; 2020-01-06)
PROC: 5A1D70Z Performance of Urinary Filtration, Intermittent, Less than 6 Hours Per Day (ICD-10-PCS; 2020-01-06)
PROC: 5A1935Z Respiratory Ventilation, Less than 24 Consecutive Hours (ICD-10-PCS; 2020-01-06)
PROC: 0BH17EZ Insertion of Endotracheal Airway into Trachea, Via Natural or Artificial Opening (ICD-10-PCS; 2020-01-06)
PROC: 02HV33Z Insertion of Infusion Device into Superior Vena Cava, Percutaneous Approach (ICD-10-PCS; 2020-01-07)
DX: A41.9 Sepsis, unspecified organism (principal); J18.9 Pneumonia, unspecified organism; K72.00 Acute and subacute hepatic failure without coma; N17.0 Acute kidney failure with tubular necrosis; R65.21 Severe sepsis with septic shock; J96.01 Acute respiratory failure with hypoxia; I50.43 Acute on chronic combined systolic (congestive) and diastolic (congestive) heart failure; J44.0 Chronic obstructive pulmonary disease with (acute) lower respiratory infection; I48.19 Other persistent atrial fibrillation; I42.8 Other cardiomyopathies; I13.0 Hypertensive heart and chronic kidney disease with heart failure and stage 1 through stage 4 chronic kidney disease, or unspecified chronic kidney disease; E44.0 Moderate protein-calorie malnutrition; D68.4 Acquired coagulation factor deficiency; N39.0 Urinary tract infection, site not specified; E87.5 Hyperkalemia; N18.3 Chronic kidney disease, stage 3 (moderate); E03.9 Hypothyroidism, unspecified; N40.0 Benign prostatic hyperplasia without lower urinary tract symptoms; I70.0 Atherosclerosis of aorta; I46.8 Cardiac arrest due to other underlying condition; I25.10 Atherosclerotic heart disease of native coronary artery without angina pectoris; F17.210 Nicotine dependence, cigarettes, uncomplicated; F12.90 Cannabis use, unspecified, uncomplicated; E78.5 Hyperlipidemia, unspecified; E11.649 Type 2 diabetes mellitus with hypoglycemia without coma; E11.22 Type 2 diabetes mellitus with diabetic chronic kidney disease; K59.04 Chronic idiopathic constipation; Z20.828 Contact with and (suspected) exposure to other viral communicable diseases; Z79.01 Long term (current) use of anticoagulants; Z79.82 Long term (current) use of aspirin; Z82.49 Family history of ischemic heart disease and other diseases of the circulatory system; Z98.1 Arthrodesis status; Z95.810 Presence of automatic (implantable) cardiac defibrillator
CPT/HCPCS: 31500; 36415; 36600; 70450; 71045; 76775; 80053; 80074; 80307; 81001; 82550; 82728; 82805; 82962; 83036; 83540; 83550; 83605; 83615; 83735; 83880; 84100; 84132; 84443; 84484; 85007; 85014; 85018; 85025; 85027; 85379; 85610; 85730; 86141; 86706; 87040; 87070; 87077; 87081; 87086; 87186; 87205; 87340; 87426; 90935; 93005; 94002; 94640; G0378; J0171; J0610; J0696; J1815; J2185; J2250; J2405; J7060; P9047